=== PATIENT | male | born 1995 | race Caucasian/White ===

== ENCOUNTER 2018-10-13 09:48 | Emergency (ER) | payer OTHER, SELFPAY ==
[2018-10-13 09:51] VITALS: BP 129/80; PULSE 70; RESP 16; TEMP 36.6; O2SAT 98
--- NOTE | 2018-10-13 09:59 | W.ED.GENAD ---
Discharge Plan Disposition Patient Disposition: HOME Condition: Stable Discharge Details Chief Complaint: Orthopedic Clinical Impression: Injury, wrist, Hand injury Primary Care Provider: Mark Perkins ED Provider: Carmen Powell Home Meds and New Rx's Prescriptions: Continued ibuprofen 600 MG tablet 600 mg PO Q6H PRN PRNQty: 30 RF: 0 Discharge Instructions Instructions: Wrist Injury (ED), Hand Sprain (ED) Additional Instructions: Please return to the emergency department if you develop any new or worsening symptoms, if your condition does not improve as expected, or if you develop any other concerns. It is extremely important that you call as soon as possible to make an appointment to be seen in follow-up for this visit by your primary care doctor and by an orthopedic surgeon. Referrals: Mark Perkins MD [Primary Care Provider] - Matt Ontiveros MD [ [facility] STAFF PHYSICIAN] - Medical Decision Making Gavino Madrigal is a 23-year-old man without history of major medical problems who presented to the emergency department with left hand and wrist pain after getting his hand caught in a spinning steering wheel while participating in the [employer] at a fair last night. On exam patient is very well and nontoxic appearing. Left hand is neurovascularly intact. There is mild diffuse tenderness to palpation of the wrist and second and third metacarpal. Normal range of motion of the fingers, somewhat reduced range of motion of the wrist secondary pain. Concern for soft tissue injury versus fracture. Record review shows tetanus last given 2007. Plan to update tetanus, obtain x-rays hand and wrist. Prelim xray read hand per radiology, normal, prelim xray wrist per radiology, normal. Plan for wrist splint. I had a lengthy discussion with the patient regarding return to emergency department precautions, home care, and importance of outpatient follow-up. Patient verbalized understanding the plan was amenable. All questions were answered. Patient was discharged home with clear plan for outpatient follow-up. Medical Records Medical records reviewed: Yes I reviewed the patient's medical records. HPI General Mode of arrival: ambulatory. Date/Time Provider Initiated Documentation: 10/13/18 09:59. Limitations to Documentation: no limitations. Information obtained by: patient, family, RN notes reviewed and old records reviewed. HPI Narrative: Gavino Villalobos is a 23-year-old man without history of major medical problems who is presenting to the emergency department with right hand and wrist pain. Patient reports that he participated in a [employer] last night, and at one point his steering well was spinning rapidly. He got his left hand caught in the steering well. Patient reports that he had some pain yesterday and his left hand and wrist, and pain increased throughout the night into this morning. Pain is worse the radial aspect of his wrist and lateral aspect of the dorsum of his hand. He denies any other pain or injury. Was previously in his usual state of health. Denies any other pain. Unsure of his last tetanus. Related Data Home Medications Medication Instructions Recorded Confirmed ibuprofen 600 mg PO Q6H PRN PRN #30 tablet 04/11/17 Previous Rx's Medication Instructions Recorded ibuprofen 600 mg PO Q6H PRN PRN #30 tablet 04/11/17 Allergies Allergy/AdvReac Type Severity Reaction Status Date / Time No Known Allergies Allergy Unverified 04/11/17 09:15 General Stated Complaint: Orthopedic YE: 4 Review of Systems Review of Systems Constitutional: denies fevers Eyes: denies eye pain ENT: denies facial pain, dental pain, sore throat Cardiovascular: denies chest pain Respiratory: denies SOB, cough GI: denies abdominal pain, vomiting, diarrhea : denies flank pain MSK: denies back pain, neck pain, reports left hand and wrist pain as per HPI Skin: denies rash Neuro: denies headaches, numbness, weakness PFS Medical History Pilonidal abscess Surgical History (Updated 04/15/17 @ 13:01 by Prabha Jaramillo) Excision, Pilonidal Cyst (04/11/17) Social History Smoking/Tobacco Use Status: Current-Occasional Tobacco Type: cigarettes Alcohol Intake: never Drug use: Never Do you feel safe at home: Yes Exam Narrative Exam Narrative: Constitutional: well and [id number], pleasant, conversing normally HENT: head atraumatic/normocephalic/normal inspection, mucous membranes moist Eyes: conjunctiva normal, sclera normal, pupils 3mm b/l Neck: no stridor, normal ROM, trachea midline Resp: normal work of breathing Skin: warm, dry, normal color, no rash Neuro: alert, not altered, grossly non-focal, normal tone Ext: Radial pulse intact and symmetric, no edema of the left arm or hand, left elbow and forearm nontender to palpation, mild diffuse tenderness palpation without focality of the wrist, second and third metacarpals, able to supinate but with some pain, flexion/extension of the left wrist somewhat limited secondary to pain, normal range of motion of the left digits, healing abrasions x2 both less than 1 cm to dorsum of left hand Psych: normal mood, normal affect, normal behavior Course Vital Signs Temperature 36.6 C 10/13/18 09:51 Pulse 70 10/13/18 09:51 Respiratory Rate 16 10/13/18 09:51 Blood Pressure 129/80 10/13/18 09:51 Pulse Oximetry 98 10/13/18 09:51 Temperature 36.6 C 10/13/18 09:51 Temperature Source Skin 10/13/18 09:51 Pulse 70 10/13/18 09:51 Respiratory Rate 16 10/13/18 09:51 Respiratory Effort Non-Labored 10/13/18 09:55 Blood Pressure 129/80 10/13/18 09:51 Pulse Oximetry 98 10/13/18 09:51 Oxygen Delivery Method Room Air 10/13/18 09:51 Oxygen Flow Rate 0 10/13/18 09:51
--- NOTE | 2018-10-13 10:05 | DI.RAD_ITS ---
SYMPTOM/DIAGNOSIS: TRAUMA, PAIN DORSUM LT HAND LEFT HAND: Comparison is made with 14 March 2013 There is an old healed fracture deformity of the 4th metacarpal. No acute fracture or dislocation is seen. IMPRESSION: No acute abnormality.
--- NOTE | 2018-10-13 10:05 | DI.RAD_ITS ---
SYMPTOM/DIAGNOSIS: TRAUMA, PAIN RADIAL ASPECT WRIST LEFT WRIST: No fracture or dislocation is seen. IMPRESSION: Negative left wrist.
--- NOTE | 2018-10-13 10:14 | NUR.NOTE ---
Nursing Note: PT went to x-ray.
--- NOTE | 2018-10-13 10:45 | NUR.NOTE ---
Nursing Note: pt given TDAP vaccine information sheet to review.
== END 2018-10-13 10:58 | disposition home or self-care (01) ==
PROVIDERS: Emergency Provider Student in an Organized Health Care Education/Training Program; PCP Pediatrics
DX: S69.92XA Unspecified injury of left wrist, hand and finger(s), initial encounter (principal); X50.9XXA Other and unspecified overexertion or strenuous movements or postures, initial encounter; Y92.39 Other specified sports and athletic area as the place of occurrence of the external cause
CPT/HCPCS: 29125; 90471; 99284; 73110; 73130; 99283; L3807